=== PATIENT | male | born 1995 | race Caucasian/White ===

== ENCOUNTER 2019-05-17 11:56 | Observation (INO) ==
[2019-05-17] MEDS ORDERED: CLINDAMYCIN INJ 900 MG in PREMIX 1 EACH IV STA (14:44)
[2019-05-17] MEDS ORDERED: SODIUM CHLORIDE 0.9% 1,000 ML IV STA (14:44)
[2019-05-17] MEDS ORDERED: CLINDAMYCIN INJ 50 ML IV ONE (15:05)
[2019-05-17 15:06] LABS: Basophils % 0.2 % (0.0-0.8); Hematocrit 40.8 VOL% (42.0-52.0); Hemoglobin 13.6 GM/DL (14.0-18.0); Immature Granulocytes % 4.8 %; Immature Granulocytes Absolute 1.06 #; Lymphocytes % 4.7 % (21.2-54.2); Mean Corpuscular HGB Conc 33.3 GM/DL (32-36); Mean Platelet Volume 11.6 FL (9.6-12.0); Monocytes % 6.3 % (1.7-12.7); Platelet Count 178 T/CUMM (130-400); Red Blood Count 4.04 MC/CUMM (3.8-5.5); Red Cell Distribution Width 12.5 % (9.3-17.3)
[2019-05-17 15:25] LABS: Band Neutrophils 3 % (0-10); Lymphocytes 7 % (20-55); Reactive Lymphocytes Few; Segmented Neutrophils 84 % (50-85); Total Cells Counted 100
[2019-05-17 15:26] LABS: Osmolality,Calculated 280.7 MOS/KG (273-304); Platelet Estimate Adequate
[2019-05-17] MEDS ORDERED: ONDANSETRON 4 MG/2 ML VIAL ONE (15:51)
[2019-05-17] MEDS ORDERED: HYDROmorphone 2 MG/1 ML VIAL IV STA (15:55)
[2019-05-17] MEDS ORDERED: ONDANSETRON 4 MG/2 ML VIAL IV STA (15:55)
[2019-05-17] MEDS ORDERED: PROMETHAZINE 25 MG/1 ML VIAL IM PRN (16:34)
[2019-05-17] MEDS: LACTATED RINGERS 1,000 ML IV SCH (17:12)
[2019-05-17] MEDS ORDERED: INFLUENZA VIRUS VACCINE 0.5 ML SYRINGE IM ONE (17:33)
[2019-05-17] MEDS: LEVOFLOXACIN INJ 750 MG in PREMIX 1 EACH IV SCH (17:50)
[2019-05-17] MEDS: HYDROmorphone 2 MG/1 ML VIAL IV PRN (17:50)
[2019-05-18] MEDS: ACETAMINOPHEN 325 MG TABLET PO PRN ×2 (00:04→17:24)
[2019-05-18] MEDS: HYDROmorphone 2 MG/1 ML VIAL IV PRN ×3 (00:09→07:59)
[2019-05-18] MEDS: ONDANSETRON 4 MG/2 ML VIAL IV PRN ×2 (00:14→17:28)
[2019-05-18] MEDS: LACTATED RINGERS 1,000 ML IV SCH ×4 (03:38→18:41)
[2019-05-18] MEDS ORDERED: diphenhydrAMINE CAP 25 MG CAPSULE PO PRN (07:32)
[2019-05-18] MEDS: LEVOFLOXACIN INJ 750 MG in PREMIX 1 EACH IV SCH (08:00)
[2019-05-18] MEDS: PANTOPRAZOLE 40 MG TABLET PO SCH (08:00)
[2019-05-18] MEDS ORDERED: SODIUM CHLORIDE 0.9% 1,400 ML IV ONE (08:51)
[2019-05-18] MEDS ORDERED: LEVOFLOXACIN INJ 750 MG in PREMIX 1 EACH IV SCH (09:00)
[2019-05-18] MEDS ORDERED: PROPOFOL 200 MG/20 ML VIAL IV ONE (10:46)
[2019-05-18] MEDS ORDERED: SEVOFLURANE 1 UNIT/15 MINUTE INH ONE (10:47)
[2019-05-18] MEDS ORDERED: MIDAZOLAM 2 MG/2 ML VIAL ONE (10:47)
[2019-05-18] MEDS ORDERED: ONDANSETRON 4 MG/2 ML VIAL ONE (10:47)
[2019-05-18] MEDS ORDERED: LIDOCAINE 2% 5 ML VIAL ONE (10:47)
[2019-05-18] MEDS ORDERED: fentaNYL 100 MCG/2 ML VIAL ONE (10:47)
[2019-05-18 12:08] LABS: Apearance,Urine CLEAR (Clear); Bilirubin,Urine Negative (Negative); Blood, Urine Negative (Negative); Glucose,Urine (UA) Negative (Negative); Hyaline Casts,Urine 3 /LPF (0-3); Ketones,Urine 5 mg/dL (Negative); Mucus,Urine Few /LPF (Occasional); Nitrite,Urine Negative (Negative); Protein,Urine Negative; Squamous Epithelial Cell,Urine Occasional /HPF (0-10); Urine Color Yellow (Yellow); Urine Specific Gravity 1.017 (1.001-1.035); WBC,Urine 1 /HPF (0-6)
[2019-05-18] MEDS: metroNIDAZOLE INJ 500 MG in PREMIX 1 EACH IV SCH ×3 (13:47→21:13)
[2019-05-18] MEDS: TAMSULOSIN 0.4 MG CAPSULE PO SCH ×2 (14:07→21:13)
[2019-05-18] MEDS: OSELTAMIVIR 75 MG CAPSULE PO SCH ×3 (14:07→21:16)
[2019-05-19] MEDS: metroNIDAZOLE INJ 500 MG in PREMIX 1 EACH IV SCH ×4 (02:04→20:35)
[2019-05-19] MEDS: LACTATED RINGERS 1,000 ML IV SCH ×4 (03:55→20:39)
[2019-05-19 06:12] LABS: Eosinophils % 0.2 % (0.00-10.9); Hematocrit 30.2 VOL% (42.0-52.0)
[2019-05-19 06:32] LABS: Basophils % 0.3 % (0.0-0.8); Immature Granulocytes % 0.9 %; Immature Granulocytes Absolute 0.12 #; Lymphocytes # 1.4 10*3/uL (1.4-4.0); Lymphocytes % 11.1 % (21.2-54.2); Mean Corpuscular HGB Conc 33.1 GM/DL (32-36); Mean Corpuscular Volume 101.3 FL (87-102); Mean Platelet Volume 12.2 FL (9.6-12.0); Monocytes % 9.7 % (1.7-12.7); Neutrophils % 77.8 % (38.7-73.9); Platelet Count 147 T/CUMM (130-400); Red Cell Distribution Width 12.4 % (9.3-17.3)
[2019-05-19 06:34] LABS: Red Blood Count 2.98 MC/CUMM (3.8-5.5); White Blood Count 12.8 T/CUMM (4-12)
[2019-05-19 06:39] LABS: Bilirubin,Total 0.6 MG/DL (0.2-1.0); Calcium 7.9 MG/DL (8.5-10.1); Osmolality,Calculated 273.7 MOS/KG (273-304); Total Protein 4.8 G/DL (6.4-8.3)
[2019-05-19 06:40] LABS: Band Neutrophils 5 % (0-10); Hypochromasia 1+; Lymphocytes 8 % (20-55); Platelet Estimate Adequate; Segmented Neutrophils 81 % (50-85); Total Cells Counted 100
[2019-05-19] MEDS: ONDANSETRON 4 MG/2 ML VIAL IV PRN ×2 (07:24→13:04)
[2019-05-19] MEDS: TAMSULOSIN 0.4 MG CAPSULE PO SCH ×2 (08:40→20:35)
[2019-05-19] MEDS: PANTOPRAZOLE 40 MG TABLET PO SCH (08:40)
[2019-05-19] MEDS: OSELTAMIVIR 75 MG CAPSULE PO SCH ×2 (09:27→20:40)
[2019-05-19] MEDS: HYDROmorphone 2 MG/1 ML VIAL IV PRN (09:51)
[2019-05-19] MEDS ORDERED: BUTALBITAL/ACETAMIN/CAFFEINE 50-325-40 MG TABLET PO ONE (10:24)
[2019-05-19] MEDS: LEVOFLOXACIN INJ 750 MG in PREMIX 1 EACH IV SCH (11:00)
[2019-05-19] MEDS: SODIUM HYPOCHLORITE 0.25% IRRIG 473 ML BOTTLE TOP SCH (13:15)
[2019-05-20] MEDS: metroNIDAZOLE INJ 500 MG in PREMIX 1 EACH IV SCH ×2 (03:03→08:19)
[2019-05-20] MEDS: LACTATED RINGERS 1,000 ML IV SCH (03:05)
[2019-05-20] MEDS: TAMSULOSIN 0.4 MG CAPSULE PO SCH (08:19)
[2019-05-20] MEDS: PANTOPRAZOLE 40 MG TABLET PO SCH (08:19)
[2019-05-20 08:20] VITALS: BP 94/53
[2019-05-20] MEDS: LEVOFLOXACIN INJ 750 MG in PREMIX 1 EACH IV SCH (08:20)
[2019-05-20] MEDS: ONDANSETRON 4 MG/2 ML VIAL IV PRN (08:20)
[2019-05-20] MEDS: SODIUM HYPOCHLORITE 0.25% IRRIG 473 ML BOTTLE TOP SCH (08:20)
== END 2019-05-20 12:04 | disposition home health service (06) ==
LOC: N.EDINP 11:56 → N.ED 11:56 → N.2W 16:29 → N.3E 05-18 13:31
PROVIDERS: ADMIT Surgery; ATTEND Surgery